=== PATIENT | female | born 1950 | race Caucasian/White ===

== ENCOUNTER 2017-06-25 07:27 | Day surgery (SDC) | payer MEDICARE, OTHER ==
--- NOTE | 2017-06-23 16:21 | HP ---
CC: Dr. Biswas * DATE OF ADMISSION: 06/25/2017 - [facility] Age: 66-year-old female. ADMITTING DIAGNOSES: 1. Microscopic hematuria. 2. Bladder lesion. PLANNED PROCEDURE: Transurethral resection of bladder lesion and left stent insertion. SURGEON: Dr. Walton. HISTORY OF PRESENT ILLNESS: Germania Fontenot is a 66-year-old lady who had undergone cystoscopy in April of 2017 for microscopic hematuria. 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 Because of the proximity of the lesion to the left orifice, the plan is for transurethral resection of bladder lesion and temporary left stent insertion. PAST MEDICAL HISTORY: Significant for migraines. MEDICATIONS ON ADMISSION: 1. Multivitamins. 2. Calcium. 3. Aspirin 81 mg a day. ALLERGIES: SULFA (HIVES). REVIEW OF SYSTEMS: She is otherwise in excellent health. She denies any chest pain or shortness of breath. There is no history of diabetes mellitus or any other major systemic illness. She had some musculoskeletal issues after recent accident which have resolved. PHYSICAL EXAMINATION GENERAL: Pleasant, healthy-appearing lady. VITAL SIGNS: Blood pressure 130/84, pulse 70 per minute and regular, oxygen saturation 98 percent on room air. CARDIOVASCULAR: Regular rate and rhythm, S1, S2. LUNGS: Clear bilaterally. ABDOMEN: Soft without masses. IMPRESSION: Sjenn-[id number]-cjta-old lady with a papillary lesion in the bladder above the left orifice. PLAN: Planned procedure is transurethral resection of bladder lesion and left stent insertion. [id number]/CPS #: [id number] MTDD
[~2017-06-25 07:27] MED LIST: Buffered Lidocaine 0.9% SYRIN* 5 ML/SYR SYRINGE INTRADERM ONE; Dexamethasone IV* 4 MG/ML 1 ML (4 MG) IV SLOW PU ONE; Famotidine IV* 10 MG/ML 2 ML (20 mg) IV ONE
[2017-06-25] MEDS ORDERED: Iohexol 180 (CONTRAST) 10 ML SDV IV ONE (08:09)
[2017-06-25] MEDS ORDERED: fentaNYL* 50 MCG/ML 2 ML VIAL (100 MCG VIAL) ONE (08:17)
[2017-06-25] MEDS ORDERED: Lidocaine 2% PF * 5 ML VIAL ONE (08:18)
[2017-06-25] MEDS ORDERED: Midazolam* 1 MG/ML 2 ML VIAL (2 MG) ONE (08:18)
[2017-06-25] MEDS ORDERED: Propofol* 10 MG/ML 20 ML BTL IV PUSH ONE (08:18)
[2017-06-25] MEDS ORDERED: Dexamethasone IV* 4 MG/ML 1 ML (4 MG) ONE (08:25)
[2017-06-25] MEDS ORDERED: Famotidine IV* 10 MG/ML 2 ML (20 mg) ONE (08:25)
[2017-06-25] MEDS ORDERED: cefTRIAXone(*) 2 GM ADDV.VIAL IVPB ONE (08:26)
[2017-06-25] MEDS ORDERED: PROCHLORPERAZINE INJ 5 MG/ML 2 ML VIAL IV PRN (08:33)
[2017-06-25] MEDS ORDERED: oxyCODONE/Acetamin 5/325 MG* TAB PO PRN (08:33)
[2017-06-25] MEDS ORDERED: Scopolamine 1.5 mg* PATCH TRANSDERM PRN (08:33)
[2017-06-25] MEDS ORDERED: oxyCODONE TAB* 5 MG TAB PO PRN (08:33)
[2017-06-25] MEDS ORDERED: Ondansetron INJ* 2 MG/ML VIAL IV PRN (08:33)
[2017-06-25] MEDS ORDERED: DiMENhydriNATE IV* 50 MG/ML VIAL IV PUSH PRN (08:33)
[2017-06-25] MEDS ORDERED: HYDROmorphone INJ* 1 MG/ML CARPUJECT SYRINGE IV PRN (08:33)
[2017-06-25] MEDS ORDERED: fentaNYL* 50 MCG/ML 2 ML VIAL (100 MCG VIAL) IV PRN (08:33)
[2017-06-25] MEDS ORDERED: HYDROcodone/ACETAMIN 5-325 MG* 1 TAB PO PRN (08:33)
[2017-06-25] MEDS ORDERED: Phenylephrine IV* 40 MCG/ML 10 ML SYRINGE ONE (09:06)
[2017-06-25] MEDS ORDERED: EPHEDrine (Pressors)* 50 MG/ML VIAL ONE (09:06)
[2017-06-25] MEDS ORDERED: Sterile Water for Inj* 10 ML ONE (09:06)
--- NOTE | 2017-06-25 10:37 | RAD ---
CPT II Codes: 6045F INDICATION: Left ureteral stent insertion, bladder tumor. Fluoroscopic services provided for referring physician. 8 seconds of fluoroscopy time was used. Retrograde pyelogram on the left demonstrates nondilated collecting system. This placement of a left ureteral stent. IMPRESSION: Fluoroscopic services provided for referring physician for left ureteral stent placement.
[2017-06-25] MEDS ORDERED: Solifenacin(NF) 5 MG TAB PO ONE (11:00)
[2017-06-25] MEDS ORDERED: Solifenacin(NF) 10 MG TAB PO ONE (11:00)
[2017-06-25] MEDS ORDERED: mitoMYcin PWD* 40 MG in Sterile Water for Inj* 40 ML IRRIGATION ONE (11:00)
[2017-06-25] MEDS ORDERED: LR @ 40 MLS/HR IV SCH (11:00)
[2017-06-25] MEDS ORDERED: Ibuprofen TAB* 600 MG ONE (12:56)
[2017-06-25 14:43] VITALS: BP 139/89
--- NOTE | 2017-06-28 03:53 | OP ---
CC: Dr. Susan Biswas * DATE OF OPERATION: 06/25/17 - [facility] DATE OF : 46 SURGEON: Cheng Walton MD ANESTHESIOLOGIST: Iris Pineda MD ANESTHESIA: General. PRE-OP DIAGNOSES: 1. Hematuria. 2. Bladder lesion. POST-OP DIAGNOSES: 1. Hematuria. 2. Bladder lesion. OPERATIVE PROCEDURE: Cystoscopy, transurethral resection and fulguration of bladder lesion (2.5 to 3 cm), left retrograde pyelogram, and left stent insertion. INDICATIONS: Germania Fontenot is a 66-year-old lady, who had been evaluated for hematuria. Office cystoscopy had revealed the above-mentioned findings. COMPLICATIONS: None. STENT USED: 6-[place] stent, left ureter. OPERATIVE FINDINGS: - to 3-cm papillary lesion about left orifice with appearance consistent with superficial transitional cell neoplasm. DESCRIPTION OF PROCEDURE: After induction of general anesthesia, the patient was placed in dorsal lithotomy position. Sequential compression devices were in place and functioning. Initial cystoscopy revealed normally located right and left ureteral orifices. Above the left orifice, a 2.5- to 3-cm papillary lesion was noted. The remainder of the bladder was unremarkable. A guidewire was introduced into the left ureter. Retrograde pyelogram revealed no evidence of obstruction or any persistent filling defect and a 6-[place] stent was introduced in an effort to prevent any injury to the distal part of the ureter, which was running directly below the location of the tumor. After successful positioning of the 6[place] stent, next attention was directed to the bladder lesion, sales representatives biopsies were obtained and sent for histopathology. Next, using the resectoscope, the lesion was completely resected and the surrounding area was carefully fulgurated. At the end of the procedure, there was no remaining lesion and there was no evidence of bladder perforation. An 18-[place] was introduced for temporary bladder drainage. The patient tolerated the procedure satisfactorily and was transferred back to the recovery area in stable condition. [id number]/CPS #: [id number] [facility]
[2017-06-28] MEDS ORDERED: Scopolamine PATCH Remove* 1 NOTE MISC PATCH OFF ONE (08:34)
== END 2017-06-25 13:50 | disposition home or self-care (01) ==
LOC: OR 07:27
PROVIDERS: ATTEND Urology
DX: C67.6 Malignant neoplasm of ureteric orifice (principal); R31.9 Hematuria, unspecified
CPT/HCPCS: 74420; 88305; A9270-GY; C1876; J0696; J1100; J2250; J2704; J3010; J9280